=== PATIENT | female | born 1980 | race Caucasian/White ===

== ENCOUNTER → 2017-08-13 | Outpatient (CLI) | payer BC, OTHER ==
[~2017-08-13] MED LIST: ALBU8.5H2 IH; BIRTH CONTROL PO; CETI10CA PO; DOCU100C37 PO; HYDR-3720 PO; NORG1TAB14 PO; OXYC-202 PO; OXYC-465 PO; TRAM-42 PO; TRAM50TA2 PO
--- NOTE | 2017-08-13 13:28 | Diagnostic Imaging Report ---
INDICATION: Routine screening. However, patient did at the time of the exam complain of a lump in the upper-outer aspect of the right breast. COMPARISON: Comparison is made with prior study from 12/16/2012. The current study was also evaluated with a Computer Aided Detection (CAD) system. FINDINGS: Both breasts are heterogeneously dense, limiting the sensitivity of mammography. No dominant mass or malignant appearing microcalcifications are seen. The axillae are unremarkable. IMPRESSION: No mammographic features suspicious for malignancy are identified. Continued close clinical and self-breast exam is recommended to confirm stability of the lump in right breast. If this persists, diagnostic mammography and ultrasound would be recommended for further evaluation. ACR BI-RADS Category 1: Negative. Result letter will be mailed to the patient. Note: At least 10% of breast cancer is not imaged by mammography. Dictated by: Dictated on workstation # [id number]
== END ==
LOC: RAD 07:44
PROVIDERS: ATTEND Obstetrics & Gynecology
DX: Z12.31 Encounter for screening mammogram for malignant neoplasm of breast (principal)
CPT/HCPCS: 77067

== ENCOUNTER → 2017-09-03 | Outpatient (CLI) | payer BC, OTHER ==
--- NOTE | 2017-09-03 11:46 | Diagnostic Imaging Report ---
INDICATION: Bilateral breast lumps. COMPARISON: Correlation is made with the recent mammogram from 08/13/2017. FINDINGS: RIGHT BREAST: Sonographic interrogation of the area of lump at the 9:30 location of the right breast was performed. There is a simple appearing cyst at this location measuring 7 mm x 5 mm x 6 mm. This does show good posterior acoustic enhancement. This cyst is located approximately 6 cm from the nipple. No other right breast mass is identified. LEFT BREAST: Sonographic interrogation of the area of lump in the left breast was performed. This does correspond to the 11 o'clock location 10 cm from the nipple. There is a circumscribed, macrolobulated hypoechoic mass at this location measuring 0.4 x 0.6 x 1.2 cm. This does demonstrate some posterior acoustic enhancement. No shadowing is detected. No internal vascularity is present. IMPRESSION: 1. Simple right breast cyst at the 9:30 location. 2. Macrolobulated hypoechoic mass at the 11 o'clock location of the left breast 10 cm from the nipple. This has fairly benign features and is suggestive of either a complex cyst or fibroadenoma. Sonographic followup in 4-6 months is recommended to confirm stability. ACR BI-RADS Category 3: Probably benign findings. Dictated by: Dictated on workstation # [id number]
== END ==
LOC: RAD 10:31
PROVIDERS: ATTEND Obstetrics & Gynecology
DX: N63.22 Unspecified lump in the left breast, upper inner quadrant (principal); N60.01 Solitary cyst of right breast
CPT/HCPCS: 76642

== ENCOUNTER 2017-09-25 12:00 | Outpatient (CLI) | payer BC ==
[~2017-09-25] VITALS: Ht 165.1 cm; Wt 72.7 kg
[2017-09-25] MEDS ORDERED: RT-ALBUINH IH (12:11)
[2017-09-26] MEDS ORDERED: ACHD5005 PO (11:00)
== END 2017-09-25 12:43 ==
LOC: PREOP 12:00
PROVIDERS: ATTEND Surgery
DX: Z01.818 Encounter for other preprocedural examination (principal); M67.431 Ganglion, right wrist

== ENCOUNTER 2017-09-26 08:02 | Day surgery (SDC) | payer BC ==
[~2017-09-26] VITALS: Ht 165.1 cm; Wt 72.7 kg
[~2017-09-26 08:02] MED LIST changes: +RT-ALBUINH IH
[2017-09-26 08:09] VITALS: BP 109/56
[2017-09-26] MEDS ORDERED: LACTATED RINGERS 1,000 ML IV PRN (08:23)
[2017-09-26] MEDS ORDERED: FAMOTIDINE 20MG/2ML IV (PEPCID) IV ONE (08:30)
[2017-09-26] MEDS ORDERED: ONDANSETRON 4 MG/2 ML (SDV) Z0FRAN IV ONE (08:30)
[2017-09-26] MEDS ORDERED: VANCOMYCIN INJECTION 1,000 MG in NS (IVPB) 250 ML IV ONE (08:30)
[2017-09-26] MEDS ORDERED: SCOPOLAMINE 1.5 MG (TRANSDERM-SCOP) PATCH TOP ONE (08:30)
[2017-09-26] MEDS ORDERED: BUP/EPI 0.5% 1:200,000 (SENSORCAINE) 30 ML VIAL ONE (09:26)
--- NOTE | 2017-09-26 09:34 | Progress Note-Pre Operative ---
Pre-Operative Progress Note H&P Reviewed The H&P was reviewed, patient examined and no changes noted. Date Seen by Provider: Sep 20, 2017 Time Seen by Provider: 11:20 Date H&P Reviewed: Sep 26, 2017 Time H&P Reviewed: 09:33 Pre-Operative Diagnosis: Left breast lump. Ganglion cyst of right wrist TRIXIE EDWARDS MD Sep 26, 2017 9:34 am
--- NOTE | 2017-09-26 10:58 | Operative Report ---
Operative Report Date of Procedure/Surgery Sep 26, 2017 Surgeon (s) TRIXIE EDWARDS MD Muleser (s): N/A Post-Operative Diagnosis Same Procedure Performed 1. Excision of left breast lump 2. Excision of ganglion cyst right wrist Description of Procedure Anesthesia Type: General Estimated blood loss (mL): Minimal Specimen(s) collected/removed Left breast lump and ganglion cyst from the right wrist Description of the Procedure Indication for the procedures: This lady presented with a palpable lump over the upper aspect of the left breast, having benign features by radiologic evaluation. She was offered simple excision to establish a tissue diagnosis. During the visit, she requested excision of a symptomatic ganglion cyst involving the right breast as well. I agreed to do so. Informed consent was obtained after reviewing the operative details and complications of hematoma, wound infection and recurrence of the ganglion cyst. Description of the procedures: She was placed supine on the operating table and general anesthesia induced via laryngeal mask airway. A gram of vancomycin was administered intravenously as prophylaxis against wound infection. Sequential compression devices were placed around her legs, to minimize the risk of venous thrombosis. 1. Excision of left breast lump: The area was prepared and draped in the usual sterile manner. A 1.5 cm transverse incision was made over the palpable lump, which was excised. It had the appearance of traumatic fat necrosis and was sent for histology examination. Hemostasis was achieved using cautery and the incision closed using 3-0 Vicryl for the deeper layer and 4-0 Vicryl for skin, in a subcuticular fashion. 0.5 percent Marcaine with epinephrine was infiltrated along the incision, the end of the operation. Steri-Strips and a nonadherent dressing were then applied. 2. Excision of ganglion cyst right wrist: After adequate antiseptic perforation , a transverse incision was made along the skin crease of the breast and the ganglion cyst excised. Hemostasis was achieved using cautery and the incision closed using 4-0 Vicryl, in a subcuticular fashion. She tolerated the procedures well, was extubated in the operating room and taken to the recovery room in a stable condition. Findings of the Procedure See op report Allergies and Home Medications Allergies Coded Allergies: ibuprofen (Unverified Allergy, Severe, ANAPHYLAXIS, 09/26/17) ketorolac (Verified Allergy, Severe, ANAPHYLAXIS, 09/25/17) Penicillins (Verified Allergy, Intermediate, RASH, 09/25/17) Sulfa (Sulfonamide Antibiotics) (Verified Allergy, Intermediate, RASH, ) tramadol (Verified Allergy, Mild, GI UPSET, 09/25/17) Home Medications Albuterol Sulfate 1 Puff Puff, 2 PUFF IH Q4H PRN for COUGH, (Reported) 1 PUFF = 90 MCG Norgestimate-Ethinyl Estradiol 1 Each Tablet, 1 EACH PO DAILY, (Reported) Patient Home Medication List Home Medication List Reviewed: Yes TRIXIE EDWARDS MD Sep 26, 2017 10:58 am
[2017-09-26] MEDS ORDERED: ACHD5005 PO (11:00)
--- NOTE | 2017-09-26 11:01 | Discharge Inst-Simple/Standard ---
Discharge Inst-Standard Discharge Medications New, Converted or Re-Newed RX: RX on Chart Patient Instructions/Follow Up Plan of Care/Instructions/FU: Band-Aids off in 48 hours. Follow-up in 3 weeks. Right hand to be elevated as much as possible for a week Activity as Tolerated: Yes Discharge Diet: No Restrictions TRIXIE EDWARDS MD Sep 26, 2017 11:01 am
[2017-09-26] MEDS ORDERED: morphine INJ 10 MG/ML 1ML (SYR OR VIAL) IVP PRN (11:15)
[2017-09-26] MEDS ORDERED: fentaNYL INJECTION 100 MCG/2 ML AMP IVP PRN (11:15)
[2017-09-26] MEDS ORDERED: ONDANSETRON 4 MG/2 ML (SDV) Z0FRAN IVP PRN (11:15)
[2017-09-26 12:05] VITALS: BP 125/80
[2017-09-26] MEDS ORDERED: HYDROcodone/APAP 5 MG/325 MG (LORTAB) TAB PO PRN (12:30)
[2017-09-26 12:35] VITALS: BP 120/64
[2017-09-26 13:15] VITALS: BP 117/73
[2017-09-26 13:35] VITALS: BP 117/73
--- NOTE | 2017-09-26 14:02 | Anesthesia-General Post-Op ---
General Patient Condition Mental Status/LOC: Same as Preop Cardiovascular: Satisfactory Nausea/Vomiting: Absent Respiratory: Satisfactory Pain: Controlled Complications: Absent Post Op Complications Complications None Follow Up Care/Instructions Patient Instructions None needed. Anesthesia/Patient Condition Patient Condition Patient is doing well, no complaints, stable vital signs, no apparent adverse anesthesia problems. No complications reported per nursing. DOTTIE BOURNE CRNA Sep 26, 2017 14:02
== END 2017-09-26 13:35 | disposition home or self-care (01) ==
LOC: SDC 08:02
PROVIDERS: ATTEND Surgery
DX: M67.431 Ganglion, right wrist (principal); N63.22 Unspecified lump in the left breast, upper inner quadrant; Z88.6 Allergy status to analgesic agent; Z88.0 Allergy status to penicillin; Z88.2 Allergy status to sulfonamides; J45.909 Unspecified asthma, uncomplicated; Z79.899 Other long term (current) drug therapy; Z80.3 Family history of malignant neoplasm of breast
CPT/HCPCS: 87081

== ENCOUNTER → 2018-05-07 | Outpatient (CLI) | payer BC ==
[~2018-05-07] MED LIST changes: +ACHD5005 PO; -OXYC-202 PO; +OXYC1TAB12 PO
--- NOTE | 2018-05-07 17:27 | Diagnostic Imaging Report ---
INDICATION: Neck pain. FINDINGS: AP, lateral and odontoid views of the cervical spine are obtained. There is straightening of normal cervical lordosis. Sclerosis indicating facet arthropathy at C3-4 is noted with slight anterolisthesis of C3 on C4. No definite fracture seen. Prevertebral soft tissues are unremarkable. IMPRESSION: Mild facet arthropathy without other evidence of acute fracture or malalignment. If indicated, further assessment may be obtained with MRI. Dictated by: Dictated on workstation # [id number]
--- NOTE | 2018-05-07 17:29 | Diagnostic Imaging Report ---
INDICATION: Back pain. FINDINGS: AP and lateral views of the thoracic spine are obtained. There is slight right convexity curvature of the thoracic spine. Thoracic kyphosis is unremarkable. There is minimal diffuse endplate spurring of the thoracic vertebrae. No fracture is seen and there is no evidence of paraspinous abnormality. IMPRESSION: Slight right convexity curvature thoracic spine without acute abnormality detected. Dictated by: Dictated on workstation # [id number]
--- NOTE | 2018-05-07 18:08 | Diagnostic Imaging Report ---
INDICATION: Back pain. TECHNIQUE: AP and lateral views of the lumbar spine are obtained. FINDINGS: There is slight levorotoscoliosis. Lumbar lordosis is unremarkable. Vertebral body heights and disc spaces are maintained. There is no evidence of acute fracture or malalignment. There is sclerosis about the sacroiliac joints. IMPRESSION: Minimal scoliotic curvature of the lumbar spine without acute abnormality detected. There is also mild sacroiliac joint sclerosis which may be due to sacroiliitis. Dictated by: Dictated on workstation # [id number]
== END ==
LOC: RAD 16:48
PROVIDERS: ATTEND Nurse Practitioner Family
DX: M46.82 Other specified inflammatory spondylopathies, cervical region (principal); M53.3 Sacrococcygeal disorders, not elsewhere classified; M54.6 Pain in thoracic spine; M54.5 Low back pain
CPT/HCPCS: 72040; 72070; 72100

== ENCOUNTER 2018-05-09 07:49 | Outpatient (RCR) | payer BC, OTHER | END 2018-08-07 | disposition home or self-care (01) | LOC: CARD 07:49 | PROVIDERS: ATTEND Nurse Practitioner Family | DX: R00.2 Palpitations (principal) | CPT/HCPCS: 93225; 93226 ==

== ENCOUNTER → 2018-05-11 | Outpatient (CLI) | payer BC ==
[~2018-05-11] MED LIST changes: +GADOBUTROL 7.5 MMOL/7.5 ML (GADAVIST) VIAL IV ONE
--- NOTE | 2018-05-11 13:37 | Diagnostic Imaging Report ---
PROCEDURE: MR imaging of the brain with and without contrast. INDICATION: Headaches and syncope. TECHNIQUE: Multiplanar, multisequence MR imaging of the brain was performed with and without contrast. CORRELATION STUDY: 09/16/2009. FINDINGS: The ventricles and sulci are age appropriate. Normal hood and white signal differentiation. No significant white matter signal abnormalities. No edema pattern. There are no restricted areas of diffusion or significant gradient echo signal abnormalities. Post contrast imaging demonstrates no abnormal areas of intracranial enhancement. The craniocervical junction and midline structures including sella are unremarkable. There is rather extensive paranasal sinus mucosal thickening throughout the ethmoid air cells and maxillary sinuses, right maxillary sinus greater than left. Prior surgical change of paranasal sinuses is present. IMPRESSION: 1. Negative for acute intracranial abnormality. 2. Extensive likely chronic sinusitis. Dictated by: Dictated on workstation # [id number]
== END ==
LOC: RAD 08:37
PROVIDERS: ATTEND Nurse Practitioner Family
DX: R51 Headache (principal); R55 Syncope and collapse
CPT/HCPCS: 70553

== ENCOUNTER 2021-01-09 14:41 | Emergency (ER) | payer BC ==
[~2021-01-09] VITALS: Ht 165 cm; Wt 70.0 kg
[~2021-01-09 14:41] MED LIST changes: -GADOBUTROL 7.5 MMOL/7.5 ML (GADAVIST) VIAL IV ONE; -OXYC-465 PO; +OXYC-556 PO; -TRAM50TA2 PO; +TRM50T PO
[2021-01-09] MEDS ORDERED: LACTATED RINGERS 1,000 ML IV STA (15:03)
--- NOTE | 2021-01-09 15:12 | ED Neurological Problem ---
General Chief Complaint: Chest Pain Stated Complaint: DIZZY/LIGHTHEADED/BODY FEELS HEAVY Nursing Triage Note: PT STATES CP ABOUT 1200 UPPER MID CHEST AND THEN AGAIN ABOUT 1400. RT ARM FEELS HEAVY NOW, DR. POTTS INFORMED AT THIS TIME. Source: patient Exam Limitations: no limitations History of Present Illness Date Seen by Provider: Jan 09, 2021 Time Seen by Provider: 14:55 Initial Comments Here with a variety of complaints that started with complaint of chest pressure heaviness intermittent since noon today but then described heaviness to the right side with difficulty with holding up the right arm. States feels weak all over. Denies headache. No report of injuries. She has had a few episodes of chest pain over the last day or 2 but they have been very short-lived. About 2:00 she had repeat onset of chest pain that seem to persist to the upper chest. Timing/Duration: increasing, episodic Severity: moderate Associated Symptoms: confusion, fatigue; No fever/chills, No muscle spasms, No nausea/vomiting, No numbness in legs/feet, No paresthesia, No slurred speech, No tingling in legs/feet, No trouble walking; weakness Allergies and Home Medications Allergies Coded Allergies: ibuprofen (Unverified Allergy, Severe, ANAPHYLAXIS, 09/26/17) ketorolac (Verified Allergy, Severe, ANAPHYLAXIS, 09/25/17) Penicillins (Verified Allergy, Intermediate, RASH, 09/25/17) Sulfa (Sulfonamide Antibiotics) (Verified Allergy, Intermediate, RASH, 09/25/17) tramadol (Verified Allergy, Mild, GI UPSET, 09/25/17) Home Medications Albuterol Sulfate 1 Puff Puff, 2 PUFF IH Q4H PRN for COUGH, (Reported) 1 PUFF = 90 MCG Hydrocodone Bit/Acetaminophen 1 Tab Tab, 1-2 TAB PO 4-6HR PRN for PAIN Prescribed by: TRIXIE EDWARDS on 09/26/17 1100 Norgestimate-Ethinyl Estradiol 1 Each Tablet, 1 EACH PO DAILY, (Reported) Patient Home Medication List Home Medication List Reviewed: Yes Review of Systems Review of Systems Constitutional: see HPI; No chills, No fever Eyes: Denies Pain, Denies Photophobia Ears, Nose, Mouth, Throat: no symptoms reported Respiratory: No cough, No short of breath Cardiovascular: chest pain (Mid upper chest that is moderate intensity since about 2 and waxes and wanes. No significant radiation. No aggravating or relieving factors other than rest relieves some.) Gastrointestinal: No abdominal pain, No nausea, No vomiting Genitourinary: no symptoms reported : No Musculoskeletal: No muscle pain; muscle weakness Skin: no symptoms reported All Other Systems Reviewed Negative Unless Noted: Yes Past Osnwhbh-Agcvju-Mavuww Hx Patient Social History Tobacco Use?: No Substance use?: No Alcohol Use?: Yes Alcohol Frequency: Once in a while Immunizations Up To Date Tetanus Booster (TDap): Unknown Seasonal Allergies Seasonal Allergies: Yes Past Medical History Surgeries: Yes Appendectomy, Section, Hysterectomy Respiratory: Yes Asthma Cardiac: No Neurological: Yes Headaches /Migraines Reproductive Disorders: No Female Reproductive Disorders: Denies Sexually Transmitted Disease: No HIV/AIDS: No UTI-Chronic Loss of Vision: Bilateral Hearing Impairment: Denies Psychosocial: No Adverse Reaction/Blood Tranf: No (N/A) Family Medical History Reviewed and Corrections made CAD Over 55 Years Old Physical Exam Vital Signs Vital Signs - First Documented 01/09/21 14:46 Temp 36.2 Pulse 75 Resp 18 B/P (MAP) 132/86 (101) Pulse Ox 98 O2 Delivery Room Air Capillary Refill : Less Than 3 Seconds Height, Weight, BMI Height: 5'5.00" Weight: 160lbs. 4.0oz. 72.234564im; 25.00 BMI Method: General Appearance: WD/WN, no apparent distress HEENT: PERRL/EOMI, pharynx normal Neck: full range of motion, supple Respiratory: lungs clear, normal breath sounds Cardiovascular: regular rate, rhythm, no murmur Peripheral Pulses: 2+ Dorsalis Pedis (R), 2+ Left Dors-Pedis (L), 2+ Radial Pulses (R), 2+ Radial Pulses (L) Gastrointestinal: non tender, soft Back: normal inspection, no CVA tenderness, no vertebral tenderness Extremities: non-tender, normal inspection Neurologic/Psychiatric: alert, oriented x 3 Crainal Nerves: normal hearing, normal speech, PERRL Motor/Sensory: no motor deficit, no sensory deficit, no pronator drift Skin: normal color, warm/dry Progress/Results/Core Measures Results/Orders Lab Results Laboratory Tests Test 01/09/21 15:03 01/09/21 15:05 01/09/21 15:33 Range/Units White Blood Count 11.5 H 4.3-11.0 10^3/uL Red Blood Count 4.56 3.80-5.11 10^6/uL Hemoglobin 13.3 11.5-16.0 g/dL Hematocrit 40 35-52 % Mean Corpuscular Volume 88 80-99 fL Mean Corpuscular Hemoglobin 29 25-34 pg Mean Corpuscular Hemoglobin Concent 33 32-36 g/dL Red Cell Distribution Width 12.7 10.0-14.5 % Platelet Count 274 130-400 10^3/uL Mean Platelet Volume 10.2 9.0-12.2 fL Immature Granulocyte % (Auto) 0 % Neutrophils (%) (Auto) 51 42-75 % Lymphocytes (%) (Auto) 31 12-44 % Monocytes (%) (Auto) 6 0-12 % Eosinophils (%) (Auto) 12 H 0-10 % Basophils (%) (Auto) 0 0-10 % Neutrophils # (Auto) 5.9 1.8-7.8 10^3/uL Lymphocytes # (Auto) 3.5 1.0-4.0 10^3/uL Monocytes # (Auto) 0.6 0.0-1.0 10^3/uL Eosinophils # (Auto) 1.4 H 0.0-0.3 10^3/uL Basophils # (Auto) 0.1 0.0-0.1 10^3/uL Immature Granulocyte # (Auto) 0.0 0.0-0.1 10^3/uL Erythrocyte Sedimentation Rate 6 0-20 MM/HR Prothrombin Time 13.4 12.2-14.7 SEC INR Comment 1.0 0.8-1.4 Activated Partial Thromboplast Time 31 24-35 SEC D-Dimer 2.10 H 0.00-0.49 UG/ML Sodium Level 140 135-145 MMOL/L Potassium Level 3.9 3.6-5.0 MMOL/L Chloride Level 104 98-107 MMOL/L Carbon Dioxide Level 25 21-32 MMOL/L Anion Gap 11 5-14 MMOL/L Blood Urea Nitrogen 15 7-18 MG/DL Creatinine 0.84 0.60-1.30 MG/DL Estimat Glomerular Filtration Rate > 60 BUN/Creatinine Ratio 18 Glucose Level 88 70-105 MG/DL Calcium Level 9.2 8.5-10.1 MG/DL Corrected Calcium 8.5-10.1 MG/DL Magnesium Level 2.1 1.6-2.4 MG/DL Total Bilirubin 0.6 0.1-1.0 MG/DL Aspartate Amino Transf (AST/SGOT) 22 5-34 U/L Alanine Aminotransferase (ALT/SGPT) 22 0-55 U/L Alkaline Phosphatase 85 40-136 U/L Myoglobin 28.8 10.0-92.0 NG/ML Troponin I < 0.028 <0.028 NG/ML C-Reactive Protein High Sensitivity 0.19 0.00-0.50 MG/DL Total Protein 7.5 6.4-8.2 GM/DL Albumin 4.6 H 3.2-4.5 GM/DL Glucometer 86 70-110 MG/DL Urine Color YELLOW Urine Clarity CLEAR Urine pH 7.5 5-9 Urine Specific [place] 1.010 L 1.016-1.022 Urine Protein NEGATIVE NEGATIVE Urine Glucose (UA) NEGATIVE NEGATIVE Urine Ketones NEGATIVE NEGATIVE Urine Nitrite NEGATIVE NEGATIVE Urine Bilirubin NEGATIVE NEGATIVE Urine Urobilinogen 0.2 < = 1.0 MG/DL Urine Leukocyte Esterase NEGATIVE NEGATIVE Urine RBC (Auto) NEGATIVE NEGATIVE Urine RBC NONE /HPF Urine WBC NONE /HPF Urine Squamous Epithelial Cells 0-2 /HPF Urine Crystals NONE /LPF Urine Bacteria TRACE /HPF Urine Casts NONE /LPF Urine Mucus NEGATIVE /LPF Urine Culture Indicated NO My Orders Orders - FRANCISCO POTTS MD Fibrin Degradation Products (01/09/21 14:50) Ua Culture If Indicated (01/09/21 14:50) Nothing By Mouth (01/09/21 Lunch) Accucheck Stat ONCE (01/09/21 14:50) Vital Signs Stroke Patient Q15M (01/09/21 14:50) Ct Head Wo-R/O Stroke (01/09/21 14:50) Intake & Output ,14, (01/09/21 14:50) Dysphagia Screening Tool (01/09/21 14:50) Lactated Ringers (Lr 1000 Ml Iv Solution (01/09/21 15:03) Hs C Reactive Protein (01/09/21 15:03) Erythrocyte Sedimentation Rate (01/09/21 15:03) Ct Angio Chest W (01/09/21 16:28) Iohexol Injection (Omnipaque 350 Mg/Ml 1 (01/09/21 16:30) Received Contrast (Hold Metformin- Contr (01/09/21 16:30) Ns (Ivpb) (Sodium Chloride 0.9% Ivpb Bag (01/09/21 16:30) Levaquin 500mg Po (01/09/21 17:39) Medications Given in ED Current Medications Medications Dose Ordered Sig/Sophie Route Start Time Stop Time Status Last Admin Dose Admin Iohexol 100 ml ONCE ONCE IV 01/09/21 16:30 01/09/21 16:32 DC 01/09/21 16:55 80 ML Sodium Chloride 100 ml ONCE ONCE IV 01/09/21 16:30 01/09/21 16:32 DC 01/09/21 16:55 80 ML Vital Signs/I&O 01/09/21 01/09/21 14:46 15:00 Temp 36.2 Pulse 75 Resp 18 B/P (MAP) 132/86 (101) Pulse Ox 98 O2 Delivery Room Air Room Air Blood Pressure Mean: 101 Progress Progress Note : Progress Note Seen and evaluated. Patient has variation of symptoms between cardiac and neuro. We will do stroke and cardiac protocol. Stroke scale is 0 on scale although she does seem to have some global weakness. LR 1 L bolus. Monitor patient. 1740: CT angiogram of the chest was ordered due to elevated D-dimer. Symptoms have markedly improved. CT chest does not show any pulmonary embolism. CT of the head did show ethmoid and frontal sinusitis. We will go ahead and treat that with Levaquin as she has penicillin allergy. I will write for a day off for her. She is mentating well and moving well currently. This may be nonspecific viral etiology or related to sinusitis. She will need further evaluation. I did discuss with her about following up with her doctor. She sees Dr. Portillo and I will send a copy of the chart to her office. Discharged home with return precautions. Patient verbalized understanding instructions and agreement with plan. Initial ECG Impression Date: Jan 09, 2021 Initial ECG Impression Time: 14:48 Initial ECG Rate: 80 Initial ECG Rhythm: Normal Sinus Initial ECG Impression: Normal Initial ECG Comparisson: No Previous ECG Available Comment Sinus rhythm with normal axis. No evidence of ST elevation WI. No previous available for comparison. Interpreted by me. Diagnostic Imaging Diagonstic Imaging: CT Plain Films/CT/US/NM/MRI: head [facility] [place] [place] NAME: [facility] REC#: [id number] PT STATUS: REG ER : 1980 PHYSICIAN: FRANCISCO POTTS MD ADMIT DATE: 01/09/21/ER Draft Date of Exam:01/09/21 CT HEAD WO-R/O STROKE PROCEDURE: CT head w/o r/o stroke. TECHNIQUE: Multiple contiguous axial images were obtained through the brain without the use of intravenous contrast. Auto Exposure Controls were utilized during the CT exam to meet ALARA standards for radiation dose reduction. INDICATION: Neurological deficit, not specified. Chest pain. CORRELATION: None. FINDINGS: There is no midline shift or mass effect. The ventricles and sulci are unremarkable. No evidence for acute intracranial hemorrhage, abnormal extra-axial fluid collections or cerebral edema is present. The basilar cisterns are unremarkable. The bony calvarium is intact. Prior extensive paranasal sinus surgery. There are rather significant areas of mucosal thickening and partial opacification, particularly through the residual nasal cavity and ethmoid air cells. No air-fluid level. IMPRESSION: Negative appearing noncontrast CT of the head. Extensive prior paranasal sinus surgery. There is rather significant mucosal thickening, particularly at the nasal cavity and residual ethmoid air cells. Dictated on workstation # [id number] Dict: 01/09/21 1536 Trans: 01/09/21 1544 [facility] [id number] Interpreted by: HARMONY OSMAN DO Electronically signed by: Diagonstic Imaging: Xray Plain Films/CT/US/NM/MRI: chest Comments [facility] [place], [place] NAME: CASPER [facility]OWN [facility] REC#: [id number] PT STATUS: REG ER : 1980 PHYSICIAN: MANUEL BLANTON APRN ADMIT DATE: 01/09/21/ER Draft Date of Exam:01/09/21 CHEST 1 VIEW, AP/PA ONLY INDICATION: Chest pain. TECHNIQUE: Single view chest 3:23 PM. CORRELATION STUDY: None FINDINGS: The heart size, mediastinal configuration and pulmonary vascularity are within normal limits. The lungs are clear with no consolidating infiltrate. There is no significant effusion or pneumothorax. IMPRESSION: 1. Negative appearing portable chest. Dictated on workstation # [id number] Dict: 01/09/21 1535 Trans: 01/09/21 1536 DO [id number] Interpreted by: HARMONY OSMAN DO Electronically signed by: Diagonstic Imaging: CT Plain Films/CT/US/NM/MRI: chest Comments [facility] [place] NAME: CAS[facility]OWN [facility] REC#: [id number] PT STATUS: REG ER : 1980 PHYSICIAN: FRANCISCO POTTS MD ADMIT DATE: 01/09/21/ER Draft Date of Exam:01/09/21 CT ANGIO CHEST W PROCEDURE: CT angiography of the chest with contrast. TECHNIQUE: Multiple contiguous axial images were obtained through the chest after uneventful bolus administration of intravenous contrast. 3D reconstructed CTA MIP acquisitions were also performed. Auto Exposure Controls were utilized during the CT exam to meet ALARA standards for radiation dose reduction. INDICATION: 40-year-old female, chest pain starting today. CORRELATION: None. FINDINGS: Heart size is borderline enlarged but without disproportionate right heart strain. Motion artifact at the ascending aorta. No definitive evidence for dissection. The pulmonary arteries demonstrate no filling defect to suggest pulmonary embolism. The lung peña are clear of infiltrate. No significant pleural effusion. The visualized portions of the upper abdomen are unremarkable. The visualized osseous structures demonstrate no acute findings. IMPRESSION: 1. No CT evidence for pulmonary embolism. Negative for acute abnormality in the chest. Dictated on workstation # [id number] Dict: 01/09/21 1708 Trans: 01/09/21 1714 PJE [id number] Interpreted by: HARMONY OSMAN DO Electronically signed by: Departure Impression Primary Impression: Acute sinusitis Qualified Codes: J01.20 - Acute ethmoidal sinusitis, unspecified Additional Impressions: Chest pain Qualified Codes: R07.9 - Chest pain, unspecified Weakness Disposition: 01 HOME, SELF-CARE Condition: Stable Departure-Patient Inst. Decision time for Depature: 17:43 Referrals: LULU PORTILLO MD (PCP/Family) Primary Care Physician Patient Instructions: Sinusitis, Adult ED, Chest Pain (DC), Weakness ED Add. Discharge Instructions: All discharge instructions reviewed with patient and/or family. Voiced understanding. Drink plenty fluids and eat a normal diet. Take medications as directed. Follow-up with your doctor this week for recheck and further evaluation. Return for worse pain, fever, vomiting, weakness, breathing problems or other concerns as needed. Scripts Levofloxacin (Levofloxacin) 500 Mg Tablet 500 MG PO DAILY, #6 TAB 0 Refills Prov: FRANCISCO POTTS MD 01/09/21 Copy Copies To 1: LULU PORTILLO MD, TIMOTHY D MD Jan 09, 2021 15:12
[2021-01-09 15:17] LABS: BASOPHILS # (AUTO) 0.1 10^3/uL (0.0-0.1); BASOPHILS % (AUTO) 0 % (0-10); EOSINOPHILS # (AUTO) 1.4 10^3/uL (0.0-0.3); EOSINOPHILS % (AUTO) 12 % (0-10); HEMATOCRIT 40 % (35-52); HEMOGLOBIN 13.3 g/dL (11.5-16.0); LYMPHOCYTES # (AUTO) 3.5 10^3/uL (1.0-4.0); LYMPHOCYTES % (AUTO) 31 % (12-44); MEAN CORPUSCULAR HEMOGLOBIN 29 pg (25-34); MEAN CORPUSCULAR HGB CONC 33 g/dL (32-36); MEAN CORPUSCULAR VOLUME 88 fL (80-99); MEAN PLATELET VOLUME 10.2 fL (9.0-12.2); MONOCYTES # (AUTO) 0.6 10^3/uL (0.0-1.0); MONOCYTES % (AUTO) 6 % (0-12); NEUTROPHILS # (AUTO) 5.9 10^3/uL (1.8-7.8); NEUTROPHILS % (AUTO) 51 % (42-75); PLATELET COUNT 274 10^3/uL (130-400); WHITE BLOOD COUNT 11.5 10^3/uL (4.3-11.0)
[2021-01-09 15:25] LABS: ALBUMIN 4.6 GM/DL (3.2-4.5)
[2021-01-09 15:26] LABS: CHLORIDE 104 MMOL/L (98-107); POTASSIUM 3.9 MMOL/L (3.6-5.0); PROTHROMBIN TIME PATIENT 13.4 SEC (12.2-14.7); SODIUM 140 MMOL/L (135-145)
[2021-01-09 15:27] LABS: CALCIUM 9.2 MG/DL (8.5-10.1)
[2021-01-09 15:28] LABS: GLUCOSE 88 MG/DL (70-105); TOTAL PROTEIN 7.5 GM/DL (6.4-8.2)
[2021-01-09 15:29] LABS: CARBON DIOXIDE 25 MMOL/L (21-32)
[2021-01-09 15:30] LABS: BILIRUBIN,TOTAL 0.6 MG/DL (0.1-1.0)
[2021-01-09 15:32] LABS: ALKALINE PHOSPHATASE 85 U/L (40-136); CREATININE SERUM 0.84 MG/DL (0.60-1.30); GFR ESTIMATED > 60
[2021-01-09 15:33] LABS: BUN/CREATININE RATIO 18
[2021-01-09 15:35] LABS: ALANINE AMINOTRANSFERASE 22 U/L (0-55); MAGNESIUM 2.1 MG/DL (1.6-2.4)
--- NOTE | 2021-01-09 15:36 | Diagnostic Imaging Report ---
INDICATION: Chest pain. TECHNIQUE: Single view chest 3:23 PM. CORRELATION STUDY: None FINDINGS: The heart size, mediastinal configuration and pulmonary vascularity are within normal limits. The lungs are clear with no consolidating infiltrate. There is no significant effusion or pneumothorax. IMPRESSION: 1. Negative appearing portable chest. Dictated by: Dictated on workstation # [id number]
[2021-01-09 15:44] LABS: BILIRUBIN,URINE NEGATIVE (NEGATIVE); CLARITY,URINE CLEAR; COLOR,URINE YELLOW; GLUCOSE, URINE (UA) NEGATIVE (NEGATIVE); KETONES,URINE NEGATIVE (NEGATIVE); LEUKOCYTE ESTERASE ,URINE NEGATIVE (NEGATIVE); NITRITE,URINE NEGATIVE (NEGATIVE); PH,URINE 7.5 (5-9); PROTEIN,URINE NEGATIVE (NEGATIVE)
--- NOTE | 2021-01-09 15:45 | Diagnostic Imaging Report ---
PROCEDURE: CT head w/o r/o stroke. TECHNIQUE: Multiple contiguous axial images were obtained through the brain without the use of intravenous contrast. Auto Exposure Controls were utilized during the CT exam to meet ALARA standards for radiation dose reduction. INDICATION: Neurological deficit, not specified. Chest pain. CORRELATION: None. FINDINGS: There is no midline shift or mass effect. The ventricles and sulci are unremarkable. No evidence for acute intracranial hemorrhage, abnormal extra-axial fluid collections or cerebral edema is present. The basilar cisterns are unremarkable. The bony calvarium is intact. Prior extensive paranasal sinus surgery. There are rather significant areas of mucosal thickening and partial opacification, particularly through the residual nasal cavity and ethmoid air cells. No air-fluid level. IMPRESSION: Negative appearing noncontrast CT of the head. Extensive prior paranasal sinus surgery. There is rather significant mucosal thickening, particularly at the nasal cavity and residual ethmoid air cells. Dictated by: Dictated on workstation # [id number]
[2021-01-09 15:52] LABS: BACTERIA,URINE TRACE /HPF; SQUAMOUS EPITHELIAL CELL,UR 0-2 /HPF
[2021-01-09] MEDS ORDERED: NS 100 ML (IVPB) BAG IV ONE (16:30)
[2021-01-09] MEDS ORDERED: IOHEXOL 350 MG/ML 100 ML (OMNIPAQUE 350) VIAL IV ONE (16:30)
[2021-01-09] MEDS ORDERED: HOLD METFORMIN - RECEIVED CONTRAST 20 ML VIAL IV SCH (16:30)
--- NOTE | 2021-01-09 17:16 | Diagnostic Imaging Report ---
PROCEDURE: CT angiography of the chest with contrast. TECHNIQUE: Multiple contiguous axial images were obtained through the chest after uneventful bolus administration of intravenous contrast. 3D reconstructed CTA MIP acquisitions were also performed. Auto Exposure Controls were utilized during the CT exam to meet ALARA standards for radiation dose reduction. INDICATION: 40-year-old female, chest pain starting today. CORRELATION: None. FINDINGS: Heart size is borderline enlarged but without disproportionate right heart strain. Motion artifact at the ascending aorta. No definitive evidence for dissection. The pulmonary arteries demonstrate no filling defect to suggest pulmonary embolism. The lung peña are clear of infiltrate. No significant pleural effusion. The visualized portions of the upper abdomen are unremarkable. The visualized osseous structures demonstrate no acute findings. IMPRESSION: 1. No CT evidence for pulmonary embolism. Negative for acute abnormality in the chest. Dictated by: Dictated on workstation # [id number]
[2021-01-09] MEDS ORDERED: LEVO500T80 PO (17:44)
[2021-01-09 17:52] VITALS: BP 124/85
== END 2021-01-09 17:52 | disposition home or self-care (01) ==
LOC: EDUNIT# 14:41 → ER 14:42
DX: J01.90 Acute sinusitis, unspecified (principal); R07.9 Chest pain, unspecified; R53.1 Weakness; J45.909 Unspecified asthma, uncomplicated
CPT/HCPCS: 36415; 70450; 71045; 71275; 80053; 81000; 82947; 83735; 83874; 84484; 85025; 85379; 85610; 85652; 85730; 86141; 93005; 93041

== ENCOUNTER → 2021-01-27 | Outpatient (CLI) | payer BC ==
[~2021-01-27] MED LIST changes: +CATHETER FLUSH 10 ML SYR IV PRN; +LEVO500T80 PO
--- NOTE | 2021-01-27 15:03 | Diagnostic Imaging Report ---
INDICATION: Right upper quadrant pain. TECHNIQUE: Patient was administered 5.4 mCi of technetium-99m Choletec intravenously, and imaging over the abdomen was performed. At 45 minutes, patient ingested 8 ounces of Ensure, and the gallbladder ejection fraction was calculated. Patient denied discomfort during the study. FINDINGS: There is homogeneous uptake of activity by the liver with prompt excretion of activity into the gallbladder and common duct. Normal passage of activity into the small bowel is noted. Gallbladder ejection fraction is normal at 42%. IMPRESSION: Normal HIDA scan and gallbladder ejection fraction. Dictated by: Dictated on workstation # [id number]
== END ==
LOC: CARD 12:00
PROVIDERS: ATTEND Nurse Practitioner Family
DX: R10.11 Right upper quadrant pain (principal)
CPT/HCPCS: 78227; A9537

== ENCOUNTER 2021-03-17 10:30 | Outpatient (RCR) | payer BC ==
[~2021-03-17] VITALS: Ht 65 cm; Wt 78.2 kg
[~2021-03-17 10:30] MED LIST changes: -CATHETER FLUSH 10 ML SYR IV PRN
[2021-03-17] MEDS ORDERED: CETI10CA PO (12:24)
[2021-03-17] MEDS ORDERED: PANT20TA2 PO (12:24)
[2021-03-17] MEDS ORDERED: SUCR1TAB36 PO (12:24)
[2021-03-17] MEDS ORDERED: ESTR1PAT76 TD (12:24)
== END 2021-03-17 14:03 | disposition home or self-care (01) ==
LOC: PREOP 10:30
PROVIDERS: ATTEND Surgery
DX: Z01.818 Encounter for other preprocedural examination (principal)

== ENCOUNTER 2021-03-23 13:28 | Day surgery (SDC) | payer BC ==
[~2021-03-23] VITALS: Ht 165 cm; Wt 78.2 kg
[2021-03-23] VITALS (15 sets, daily range): BP systolic 103–145; BP diastolic 55–85
[~2021-03-23 13:28] MED LIST changes: +ESTR1PAT76 TD; +PANT20TA2 PO; +SUCR1TAB36 PO
--- NOTE | 2021-03-23 13:44 | Conscious Sedation/ASA ---
Conscious Sedation Pre-Proced Time 13:30 ASA Score 2 For ASA 3 and 4: Consider anesthesia and medical clearance. Also, for patients with a history of failed moderate sedation consider anesthesia. Airway Lungs Heart ASA score ASA 1: a normal healthy patient ASA 2: a patient with a mild systemic disease (mid diabetes, controlled hypertension, obesity ASA 3: a patient with a severe systemic disease that limits activity (angina, COPD, prior Myocardial infarction) ASA 4: a patient with an incapacitating disease that is a constant threat to life (CHF, renal failure) ASA 5: a moribund patient not expected to survive 24 hrs. (ruptured aneurysm) ASA 6: a declared brain- patient whose organs are being harvested. For emergent operations, add the letter E after the classification Mallampati Classification Grade 2 Sedation Plan Analgesia, Amnesia, Plan communicated to team members, Discussed options with patient/fam, Discussed risks with patient/fam The patient is an appropriate candidate to undergo the planned procedure, sedation, and anesthesia. The patient immediately re-assessed prior to indication. JESSICA JIANG MD Mar 23, 2021 13:44
[2021-03-23] MEDS ORDERED: ONDANSETRON 4 MG/2 ML (SDV) Z0FRAN IVP PRN (13:45)
[2021-03-23] MEDS ORDERED: ONDANSETRON 4 MG (ZOFRAN) ORAL DISSOLVE TAB PO PRN (13:45)
--- NOTE | 2021-03-23 13:45 | Discharge Inst-Surgical ---
D/C Lap Instructions-DEIDRE Follow Up Appt in 2 weeks Activity as tolerated High Fiber Diet 25g or more per day Avoid Alcohol, Caffeine, Spicy [place] and Acid foods. Drink 64 fluid oz or more of fluids per day. Symptoms to Report: Fever over 101 degree F, Nausea/Vomiting If any problems/questions: Contact your physician or go to Emergency Room JESSICA JIANG MD Mar 23, 2021 13:45
--- NOTE | 2021-03-23 13:45 | Progress Note-Pre Operative ---
Pre-Operative Progress Note H&P Reviewed The H&P was reviewed, patient examined and no changes noted. Date Seen by Provider: Mar 23, 2021 Time Seen by Provider: 13:30 Date H&P Reviewed: Mar 23, 2021 Time H&P Reviewed: 13:30 Pre-Operative Diagnosis: abd bloating, PUD JESSICA JIANG MD Mar 23, 2021 13:45
[2021-03-23] MEDS ORDERED: HURRICAINE EXT TUBE (BENZOCAINE) XX PRN (14:30)
[2021-03-23] MEDS ORDERED: fentaNYL INJ 100 MCG/2 ML AMP IVP ONE (14:30)
[2021-03-23] MEDS ORDERED: MIDAZOLAM 5 MG/5 ML (VERSED) VIAL IV ONE (14:30)
[2021-03-23] MEDS ORDERED: NS IV 500 ML 500 ML IV PRN (14:30)
[2021-03-23] MEDS ORDERED: LIDOCAINE JELLY 2% 6 ML SYRINGE MM PRN (14:30)
[2021-03-23] MEDS ORDERED: NS IV 500 ML 500 ML ONE (14:35)
--- NOTE | 2021-03-23 15:52 | Progress Note-Post Operative ---
Post-Operative Progess Note Surgeon (s)/Cupola Melter (s) Surgeon JESSICA JIANG MD Cupola Melter: none Pre-Operative Diagnosis abd bloating, PUD Post-Operative Diagnosis reflux esophagitis(stage 2), small HH(2cm), mild-mod gastritis. Procedure & Operative Findings Date of Procedure 03/23/21 Procedure Performed/Findings EGD with bx. Anesthesia Type cs Estimated Blood Loss Estimated blood loss (mL): minimal Specimens/Packing Specimens Removed ge jxn, antrum JESSICA JIANG MD Mar 23, 2021 15:52
--- NOTE | 2021-03-24 00:34 | OPERATIVE REPORT ---
DATE OF SERVICE: 03/23/2021 ATTENDING PRIMARY CARE PHYSICIAN: Dr. Shalini Portillo. PREOPERATIVE DIAGNOSES: Crampy upper abdominal pain and abdominal bloating with early satiety. POSTOPERATIVE DIAGNOSES: Reflux esophagitis stage II, small hiatal hernia 2 cm in size, mild to moderate gastritis. No distal obstructions. PROCEDURE: EGD with biopsy. SURGEON: Jessica Jiang MD ANESTHESIA: Conscious sedation. ESTIMATED BLOOD LOSS: Minimal. FINDINGS: Reflux esophagitis stage II, small hiatal hernia 2 cm in size, mild to moderate gastritis. No distal obstructions. DISPOSITION: The patient tolerated the procedure well. INDICATIONS: The patient is a 41-year-old female referred over to us for reflux as well as epigastric pain on an intermittent basis for the past 6 months. She states that this has become worse over time. She also does report occasional episodes of nausea, bloating as well as early satiety. She does not report any vomiting. She was started on Protonix and Carafate and states that her symptoms did improve somewhat. She also underwent workup for gallbladder etiology and the ultrasound did not show any gallstones and a HIDA scan did show a normal ejection fraction. DESCRIPTION OF PROCEDURE: The patient was brought to the endoscopy suite, laid in the left lateral decubitus position. After adequate IV pain and sedative medications and conscious sedation anesthesia, the mouthpiece was applied. The endoscope was then placed in the mouth, visualizing the pharynx and hypopharyngeal region. Vocal cords, epiglottis and vallecula identified and appeared to be normal. The endoscope was then gently abated esophageal opening and esophagus insufflated. The endoscope was then advanced through the first, second and third portions of esophagus at the level of the GE junction, a reflux esophagitis stage II identified. No ulcers or strictures identified in this region and a biopsy was taken with forceps with visualization of good hemostasis. The endoscope was then advanced into the stomach and endoscope retroflexed, visualizing a small hiatal hernia approximately 2 cm in size. There was a mild to moderate gastritis. No formal ulcerations, polyps, or any neoplasms. A biopsy was taken of the stomach antrum to rule out H. pylori with visualization of good hemostasis. The endoscope was then advanced to the pylorus and the first and second portion of the duodenum, which appeared normal with no distal obstructions. The endoscope was then slowly withdrawn while taking a second look and suctioning of residual air with no additional findings. The patient tolerated the procedure well. We will have him continue with medical management for reflux esophagitis as well as gastritis, which would include avoidance of caffeinated beverages, spicy, greasy and acidic foods as well as take in small and more frequent meals, avoidance of eating at night. We will have her also continue with the Protonix 40 mg daily. The symptoms of abdominal bloating and early satiety may be related to gastritis as well as a small hiatal hernia; however, may also be related to an evolving biliary dyskinesia and we will have her follow up for reevaluation for this. Job ID: [id number] DocumentID: [id number] Dictated Date: 03/23/2021 15:47:22 Communications Programmer Date: 03/24/2021 00:33:16 Dictated By: JESSICA JIANG MD
== END 2021-03-23 16:50 | disposition home or self-care (01) ==
LOC: ENDO 13:28
PROVIDERS: ATTEND Surgery
DX: K21.00 Gastro-esophageal reflux disease with esophagitis, without bleeding (principal); K29.50 Unspecified chronic gastritis without bleeding; K44.9 Diaphragmatic hernia without obstruction or gangrene; J45.909 Unspecified asthma, uncomplicated; Z79.899 Other long term (current) drug therapy; Z90.89 Acquired absence of other organs

== ENCOUNTER 2021-04-21 05:39 | Outpatient (CLI) | payer BC ==
[~2021-04-21] VITALS: Ht 165.1 cm; Wt 72.6 kg
[2021-04-22] MEDS ORDERED: MULT-1136 PO (12:23)
[2021-04-22] MEDS ORDERED: CETI10TA49 PO (12:23)
[2021-04-22] MEDS ORDERED: L.AC1CAP6 PO (12:23)
== END 2021-04-22 12:30 | disposition home or self-care (01) ==
LOC: PREOP 05:39
PROVIDERS: ATTEND Surgery
DX: Z01.818 Encounter for other preprocedural examination (principal)

== ENCOUNTER 2021-04-28 08:20 | Day surgery (SDC) | payer BC ==
--- NOTE | 2021-04-21 06:53 | HISTORY AND PHYSICAL ---
DATE OF SERVICE: DATE OF ADMISSION: 04/28/2021. ATTENDING PRIMARY CARE PHYSICIAN: Shalini Portillo MD. HISTORY OF PRESENT ILLNESS: The patient is a 41-year-old female, who was initially referred over to us for reflux type symptoms as well as epigastric pain on an intermittent basis for the past 6 to 7 months. She states that this was initially mild; however, has gradually worsened. She does not report any vomiting; however, does state that she has issues with nausea, abdominal bloating as well as early satiety after eating meals. She was started on Protonix and Carafate and states that her symptoms may have improved slightly; however, she has had reoccurrence of symptoms. We had done an EGD on her on 03/23/2021, which did show a reflux esophagitis II, a small hiatal hernia 2 cm in size as well as a mild to moderate gastritis and no ulcerations as well as no distal obstructions. We had continued to try medical management; however, she continued to have symptoms with abdominal bloating as well as early satiety and after further questioning, she reports that this tended to be worse when she took in foods high in fat. She underwent an ultrasound, which did not show any gallstones and she then underwent a HIDA scan, which showed a normal ejection fraction; however, she states that she did feel the same type of symptoms with abdominal bloating as well as nausea after the administration of the Kinevac analogue. PAST MEDICAL HISTORY: Gastroesophageal reflux disease, history of endometriosis, and asthma. PAST SURGICAL HISTORY: section in 1996 and 2005, sinus surgery in 2004, laparoscopic total hysterectomy and appendectomy in 2017. ALLERGIES: PENICILLIN. MEDICATIONS: Albuterol inhaler, Protonix 40 mg daily, and estradiol 0.1 mg patch twice weekly. SOCIAL HISTORY: Negative smoke and social alcohol. FAMILY HISTORY: Mother, breast cancer, hypertension, and history of DVT. REVIEW OF SYSTEMS: A well-nourished female currently in no acute distress. She is not experiencing any shortness of breath or difficulty in breathing. No chest pain, palpitations or diaphoresis. Abdominal bloating with discomfort in the epigastric region as well as the right upper abdominal quadrant after eating meals with nausea; however, no vomiting. No diarrhea or constipation, no red blood per rectum, and no dark tarry stools. No fever and chills. No recent inadvertent weight loss. All other review of systems negative. PHYSICAL EXAMINATION: VITAL SIGNS: Stable. Blood pressure 112/76, current weight 172 pounds at 5 feet 5 inches. Body mass index of 28. CHEST: Clear. Good breath sounds bilaterally. HEART: Regular and no murmurs. EXTREMITIES: No lower extremity edema and negative Homans sign. HEENT: No scleral icterus. NECK: No cervical lymphadenopathy. ABDOMEN: Soft and nondistended. There is mild discomfort in the right upper abdominal quadrant upon deep palpation. No peritoneal signs. SKIN: Warm and dry. ASSESSMENT AND PLAN: A 41-year-old female with symptomatic biliary dyskinesia. The natural history of gallbladder disease was explained to the patient including the risks and benefits of surgery and she is in full understanding of this and would like to proceed with a laparoscopic cholecystectomy, which we will schedule. Job ID: [id number] DocumentID: [id number] Dictated Date: 04/05/2021 14:34:04 Tyre Finisher And Examiner Date: 04/05/2021 14:47:51 Dictated By: JESSICA JIANG MD
[2021-04-28] VITALS (11 sets, daily range): BP systolic 96–119; BP diastolic 60–76
[~2021-04-28] VITALS: Ht 165.1 cm; Wt 72.6 kg
[~2021-04-28 08:20] MED LIST changes: +CETI10TA49 PO; +L.AC1CAP6 PO; +MULT-1136 PO
[2021-04-28] MEDS ORDERED: CLINDAMYCIN 600 MG/50 ML IVPB 50 ML IV ONE ×2 (08:30→09:07)
[2021-04-28] MEDS ORDERED: LIDOCAINE/EPI 1%-1:200,000 (XYLOCAINE) 30 ML VIAL ONE (08:40)
[2021-04-28] MEDS ORDERED: ONDANSETRON 4 MG/2 ML (SDV) Z0FRAN IVP PRN ×2 (08:45→11:30)
[2021-04-28] MEDS ORDERED: morphine INJ 10 MG/ML 1ML (SYR OR VIAL) IVP PRN (08:45)
[2021-04-28] MEDS ORDERED: HYDROcodone/APAP 5 MG/325 MG (LORTAB) TAB PO ONE (08:45)
[2021-04-28] MEDS ORDERED: ACETAMINOPHEN 325 MG TABLET PO PRN (08:45)
[2021-04-28] MEDS ORDERED: HYDR-3817 PO (08:46)
--- NOTE | 2021-04-28 08:47 | Discharge Inst-Surgical ---
D/C Lap Instructions-KIDO Reconcile Patient Problems Problems Reviewed?: Yes New, Converted, or Re-Newed RX: RX on Chart Follow Up Appt in 2 weeks Activity as tolerated No driving for 24 hours No driving while on pain medications Incentive Spirometry use every 2 hours while awake Regular Diet Symptoms to Report: Fever over 101 degree F, Nausea/Vomiting Infection Signs and Symptoms to report: Increased redness, Foul odor of wound, Increased drainage Bathing instructions: May shower Operative Area Clean/Dry; Keep incision clean/dry If any problems/questions: Contact your physician or go to Emergency Room SABINA REDMOND APRN Apr 28, 2021 08:47
--- NOTE | 2021-04-28 08:50 | Progress Note-Pre Operative ---
Pre-Operative Progress Note H&P Reviewed The H&P was reviewed, patient examined and no changes noted. Date Seen by Provider: Apr 28, 2021 Time Seen by Provider: 08:45 Date H&P Reviewed: Apr 28, 2021 Time H&P Reviewed: 08:40 Pre-Operative Diagnosis: Symptomatic biliary dyskinesia SABINA REDMOND APRN Apr 28, 2021 08:50
[2021-04-28] MEDS ORDERED: ONDANSETRON 4 MG/2 ML (SDV) Z0FRAN ONE ×3 (08:56→11:45)
[2021-04-28] MEDS ORDERED: proPOfol 200 MG/20 ML (DIPRIVAN) VIAL IV ONE (08:56)
[2021-04-28] MEDS ORDERED: GLYCOPYRROLATE 0.2 MG/ML (ROBINUL) 2 ML VIAL ONE (08:56)
[2021-04-28] MEDS ORDERED: ROCURONIUM 10 MG/ML 5 ML SYRINGE IV ONE (08:56)
[2021-04-28] MEDS ORDERED: LIDOCAINE PF 2% 5 ML (XYLOCAINE) VIAL ONE (08:56)
[2021-04-28] MEDS: LACTATED RINGERS 1,000 ML IV PRN ×2 (08:56→10:30)
[2021-04-28] MEDS ORDERED: NEOSTIGMINE 3 MG/3 ML VIAL ONE (08:56)
[2021-04-28] MEDS ORDERED: MIDAZOLAM 2 MG/2 ML (VERSED) VIAL ONE (08:57)
[2021-04-28] MEDS ORDERED: fentaNYL INJ 100 MCG/2 ML AMP ONE (08:57)
[2021-04-28] MEDS ORDERED: FAMOTIDINE 20MG/2ML IV (PEPCID) ONE (09:07)
[2021-04-28] MEDS ORDERED: SCOPOLAMINE 1.5 MG (TRANSDERM-SCOP) PATCH ONE (09:07)
[2021-04-28] MEDS ORDERED: FAMOTIDINE 20MG/2ML IV (PEPCID) IV ONE (09:15)
[2021-04-28] MEDS ORDERED: SCOPOLAMINE 1.5 MG (TRANSDERM-SCOP) PATCH TOP ONE (09:15)
[2021-04-28] MEDS ORDERED: ONDANSETRON 4 MG/2 ML (SDV) Z0FRAN IV ONE (09:15)
[2021-04-28] MEDS ORDERED: FAMOTIDINE 20MG/2ML IV (PEPCID) IV NR (09:30)
[2021-04-28] MEDS ORDERED: SEVOFLURANE (ULTANE) 15 ML INHAL SOLN ONE (11:06)
--- NOTE | 2021-04-28 11:09 | Progress Note-Post Operative ---
Post-Operative Progess Note Surgeon (s)/Snagger (s) Surgeon JESSICA JIANG MD Snagger: eyal rodgers ROLL OFF DRIVER Pre-Operative Diagnosis Symptomatic biliary dyskinesia Post-Operative Diagnosis same Procedure & Operative Findings Date of Procedure 04/28/21 Procedure Performed/Findings laparoscopic cholecystectomy. Anesthesia Type get Estimated Blood Loss Estimated blood loss (mL): minimal Specimens/Packing Specimens Removed gallbladder JESSICA JIANG MD Apr 28, 2021 11:09
[2021-04-28] MEDS ORDERED: morphine INJ 10 MG/ML 1ML (SYR OR VIAL) IVP ONE (11:30)
[2021-04-28] MEDS ORDERED: HYDROmorphone 2 MG/ML VIAL (DILAUDID) IV ONE (11:30)
[2021-04-28] MEDS ORDERED: morphine INJ 10 MG/ML 1ML (SYR OR VIAL) ONE (11:45)
[2021-04-28] MEDS ORDERED: HYDROcodone/APAP 5 MG/325 MG (LORTAB) TAB ONE (12:43)
--- NOTE | 2021-04-28 13:01 | Anesthesia-General Post-Op ---
General Patient Condition Mental Status/LOC: Same as Preop Cardiovascular: Satisfactory Nausea/Vomiting: Absent Respiratory: Satisfactory Pain: Controlled Complications: Absent Post Op Complications Complications None Follow Up Care/Instructions Patient Instructions None needed. Anesthesia/Patient Condition Patient Condition Patient is doing well, no complaints, stable vital signs, no apparent adverse anesthesia problems. FATIMAH ARNOLD DO Apr 28, 2021 13:01
--- NOTE | 2021-04-28 13:18 | OPERATIVE REPORT ---
DATE OF SERVICE: 04/28/2021 ATTENDING PRIMARY CARE PHYSICIAN: Dr. Shalini Portillo. PREOPERATIVE DIAGNOSIS: Symptomatic biliary dyskinesia. POSTOPERATIVE DIAGNOSIS: Symptomatic biliary dyskinesia. PROCEDURE PERFORMED: Laparoscopic cholecystectomy. SURGEON: Jessica Jiang MD. NETWORK OPERATIONS CENTER TECHNICIAN: Merrill Mix APRN. ANESTHESIA: General endotracheal. ESTIMATED BLOOD LOSS: Minimal. FINDINGS: Small stones and sludge in the gallbladder and no gallbladder wall thickening. DISPOSITION: The patient tolerated the procedure well. INDICATION FOR PROCEDURE: The patient is a 41-year-old female, who was initially referred over to us for reflux type of symptoms, which included epigastric pain on an intermittent basis for the past seven to eight months. She states that this was initially mild; however, has gradually worsened. She does not report any vomiting; however, does state issues with nausea and abdominal bloating as well as early satiety after eating meals. She was started on Protonix and Carafate and stated that her symptoms slightly improved; however, she has had reoccurrence of symptoms. We had done an EGD on her on 03/23/2021, which showed reflux esophagitis stage II, small hiatal hernia 2 cm in size as well as a mild to moderate gastritis. We continued to try medical management; however, she continued to have symptoms of abdominal bloating and early satiety. After further questioning, she had reported her symptoms tended to be worse with fatty foods. She underwent an ultrasound, which did not show any gallstones and then she underwent a HIDA scan, which did show a normal ejection fraction; however, she had the same type of symptoms with abdominal bloating as well as nausea after the administration of the Kinevac analogue consistent with the symptomatic biliary dyskinesia. DESCRIPTION OF PROCEDURE: The patient was brought to the operating room and laid supine on the table. After adequate IV pain and sedative medications and general endotracheal intubation, the abdomen was prepped and draped in a standard surgical fashion. A 0.5% Marcaine with epinephrine was then used to anesthetize the overlying skin on the left upper abdominal quadrant and a transverse skin incision was made using a 15 blade. A 0 silk suture was applied to the medial aspect of the incision for retraction and the Veress needle inserted with a low opening pressure of 0 mmHg. The needle was removed and a 5 mm XL trocar was placed followed by a 5 mm 45-degree angle laparoscope visualizing the peritoneal cavity. A four-quadrant abdominal exploration was performed. The small bowel, stomach and liver appeared normal. There was a slightly distended gallbladder and no gallbladder wall thickening. Under direct visualization, we then proceeded to place a supraumbilical 10 mm port after the skin and peritoneal lining were anesthetized using 0.5% Marcaine with epinephrine and a transverse skin incision was made using a 15 blade. In a similar manner, a right upper abdominal quadrant 5 mm port was placed. The patient was then placed in a reverse Trendelenburg position as well as plane right side up and left side down. The fundus of the gallbladder was then retracted anteriorly and superiorly. The hepatoduodenal ligament was then dissected open using blunt dissection as well as electrocautery on the hook instrument as well as a [place] dissector. The entire critical view of safety was identified including the triangle of Calot as well as the cystic duct and artery as only two structures going into the gallbladder as well as the cystic plate behind the proximal gallbladder. A timeout was then taken and the cystic duct and artery were then clipped proximally and distally and cut with EndoShears. The gallbladder was then dissected off the liver bed using electrocautery and hook instrument with visualization of good hemostasis as well as no leaking ducts of Luschka. The gallbladder was removed through the 10 mm port site using an EndoCatch bag. The 10 mm port site fascia and peritoneum were then closed under direct visualization using a Blair-Pia device and 0 Vicryl suture. The abdomen was then desufflated and the remaining ports were removed. All skin incisions were closed using a 4-0 Monocryl running subcuticular sutures. Wounds were then cleaned and covered with the Dermabond. The patient tolerated the procedure well. We will start IV normal pain medication as well as a clear liquid diet. Once she is tolerating clears, has good pain control with oral pain medications, and is ambulating well, we will discharge her home. She will be instructed to do no heavy lifting or exertion for the next two weeks. Job ID: [id number] DocumentID: [id number] Dictated Date: 04/28/2021 11:19:31 Casket Assembler Metal Date: 04/28/2021 13:18:28 Dictated By: JESSICA JIANG MD
== END 2021-04-28 13:25 | disposition home or self-care (01) ==
LOC: SDC 08:20
PROVIDERS: ATTEND Surgery
DX: K80.10 Calculus of gallbladder with chronic cholecystitis without obstruction (principal); K82.8 Other specified diseases of gallbladder; K21.00 Gastro-esophageal reflux disease with esophagitis, without bleeding; K44.9 Diaphragmatic hernia without obstruction or gangrene; K29.70 Gastritis, unspecified, without bleeding; J45.909 Unspecified asthma, uncomplicated; Z88.0 Allergy status to penicillin; Z79.899 Other long term (current) drug therapy; Z79.890 Hormone replacement therapy; Z88.2 Allergy status to sulfonamides; Z88.8 Allergy status to other drugs, medicaments and biological substances; Z88.6 Allergy status to analgesic agent; Z11.2 Encounter for screening for other bacterial diseases
CPT/HCPCS: 87081

== ENCOUNTER → 2023-04-06 | Outpatient (CLI) | payer BC ==
[~2023-04-06] MED LIST changes: +ALBU8.5H6 IH; +HOLD METFORMIN - RECEIVED CONTRAST 20 ML VIAL IV SCH; +HYDR-3817 PO; +IOHEXOL 350 MG/ML 100 ML (OMNIPAQUE 350) VIAL IV ONE; +LEVO-55 PO; -LEVO500T80 PO; +NS 100 ML (IVPB) BAG IV ONE; -RT-ALBUINH IH
--- NOTE | 2023-04-06 09:05 | Diagnostic Imaging Report ---
PROCEDURE: CT abdomen and pelvis with and without contrast. TECHNIQUE: Precontrast acquisitions were acquired through the abdomen and pelvis. Multiple contiguous axial images were obtained through the abdomen and pelvis after the administration of intravenous contrast. Auto Exposure Controls were utilized during the CT exam to meet ALARA standards for radiation dose reduction. INDICATION: Low back pain radiating to left lower quadrant. No prior studies are available for comparison. The lung bases are clear. There is trace pleural fluid bilaterally. The liver is unremarkable. Gallbladder surgically absent. No biliary duct dilatation. Pancreas and spleen are unremarkable. No adrenal mass is identified. There is a punctate nonobstructing calculus in the left kidney. Right kidney is unremarkable. Aorta is nonaneurysmal. The bowel loops appear to be nonobstructed. No free fluid or fluid collection is seen. No inflammatory changes are identified. Bladder is decompressed. Uterus is surgically absent. IMPRESSION: 1. Punctate nonobstructing left-sided nephrolithiasis. No ureteral calculi or hydronephrosis is detected. 2. No acute feature in the abdomen or pelvis is identified. Dictated by: Dictated on workstation # [id number]
== END ==
LOC: RAD 08:00
PROVIDERS: ATTEND Nurse Practitioner Family
DX: N20.0 Calculus of kidney (principal)
CPT/HCPCS: 74178